=== PATIENT | male | born 1960 | race Caucasian/White ===

== ENCOUNTER → 2019-07-06 | Outpatient (CLI) | payer OTHER ==
[~2019-07-06] MED LIST: ASPI81TA59 PO; ATOR10TA PO; CLOP75TA57 PO; HYDR-2145 PO; MULT-245 PO
== END | disposition home or self-care (01) ==
LOC: LAB 13:40
PROVIDERS: ATTEND Registered Nurse
DX: Z03.818 Encounter for observation for suspected exposure to other biological agents ruled out (principal)
CPT/HCPCS: 87635

== ENCOUNTER → 2019-07-10 | Day surgery (SDC) | payer OTHER ==
[~2019-07-10] MED LIST changes: +IPRATRPIUM/ALBUTEROL 0.5/2.5MG 3 ML NEBU. NEB PRN; +IV RINGERS SOLUTION,LACTATED 1,000 ML IV SCH; +ONDANSETRON PF 4 MG/2 ML VIAL. IV PRN; +PROPOFOL 10,000 MCG/ML (20ML) VIAL IV ONE
[2019-07-10 08:38] VITALS: BP 133/78
--- NOTE | 2019-07-11 17:06 | PATHOLOGY ---
[facility] Accession Number: [id number] . 01 Material submitted: . PART A: colon - SIGMOID POLYP. Modifiers: sigmoid PART B: colon - TRANSVERSE POLYP. Modifiers: transverse . 01 Clinical history: . None provided . 02 Diagnosis: A. Colon biopsies, sigmoid colon: - Tubular adenoma. . B. Colon biopsies, transverse colon polyp: - Tubular adenoma. (JPM:contreras; 07/11/2019) [facility] [place] 1420 Local . 02 Comment: There is no high-grade dysplasia or evidence of malignancy. (JPM:contreras; 07/11/2019) . 02 Electronically signed: . Te Rutledge MD, Pathologist NPI- [id number] . 01 Gross description: . A. The specimen is received in formalin, labeled "Ko Kosman, sigmoid polyp". Received is a segment of pale ruiz soft tissue measuring 0.4 cm in maximum dimensions. The specimen is submitted entirely in cassette A1. . B. The specimen is received in formalin, labeled "Ko Kosman, transverse polyp". Received are two segments of pale ruiz soft tissue ranging in size from 0.4 to 0.5 cm in maximum dimensions. The specimen is submitted entirely in cassette B1. (CAA; 07/10/2019) QAC/QAC 07/10/2019 1704 Local . 02 Pathologist provided ICD-10: D12.5, D12.3 . 02 CPT . 549696, [id number] Specimen Comment: A courtesy copy of this report has been sent to [phone] Specimen Comment: [id number] Specimen Comment: Report sent to / DR GOA Performed at: [address] [place] [address] [address], [place], [place] [id number] MD Ko Posada MD Phone: [phone] Performed at: [address] [id number] MD Te Rutledge MD Phone: [phone]
== END ==
LOC: SURG 06:02
PROVIDERS: ATTEND Emergency Medicine
DX: Z12.11 Encounter for screening for malignant neoplasm of colon (principal); D12.3 Benign neoplasm of transverse colon; D12.5 Benign neoplasm of sigmoid colon; K57.30 Diverticulosis of large intestine without perforation or abscess without bleeding; I10 Essential (primary) hypertension; E78.00 Pure hypercholesterolemia, unspecified; G57.30 Lesion of lateral popliteal nerve, unspecified lower limb; E66.9 Obesity, unspecified; Z68.37 Body mass index [BMI] 37.0-37.9, adult; F17.210 Nicotine dependence, cigarettes, uncomplicated; Z86.73 Personal history of transient ischemic attack (TIA), and cerebral infarction without residual deficits; Z87.442 Personal history of urinary calculi; Z72.89 Other problems related to lifestyle
CPT/HCPCS: 45380; J2704; J7120; 88305

== ENCOUNTER → 2021-06-16 | Outpatient (CLI) | payer OTHER ==
[2019-07-10 08:38] VITALS: BP 133/78
[~2021-06-16] MED LIST changes: +IOHEXOL 300 MG/ML 75 ML VIAL. IV ONE; -IPRATRPIUM/ALBUTEROL 0.5/2.5MG 3 ML NEBU. NEB PRN; -IV RINGERS SOLUTION,LACTATED 1,000 ML IV SCH; -ONDANSETRON PF 4 MG/2 ML VIAL. IV PRN; -PROPOFOL 10,000 MCG/ML (20ML) VIAL IV ONE
--- NOTE | 2021-06-16 11:42 | RAD ---
CT abdomen and pelvis with contrast PQRS statement: CT scans at this facility use dose reduction including either automated exposure cont rol, iterative reconstructions, and /or weight based radiation dosing via mA and kV modification when appropriate to reduce radiation dose to as low as reasonably achievable. Contrast: 100 mL Omnipaque 200 intravenous contrast. HISTORY: Prostate cancer. Malignant neoplasm of the prostate. COMPARISON: No priors FINDINGS: Amplatzer device atrial septum the heart extends outside of the field of view. Lung bases u nremarkable. Lower lumbar disc disease and facet arthritis with spinal canal and neural foraminal ney noses and grade 1 anterolisthesis of L4 on L5. 1.2 cm cyst right hepatic lobe density 4 units. Tiny c alcifications pancreas uncinate perhaps the sequela of chronic pancreatitis. Spleen, adrenal glands, gallbladder are unremarkable. Bilateral nephrolithiasis. Mild bilateral perinephric edema. Left renal posterior interpolar cortex demonstrates a indistinct 1.6 cm hyperdense or enhancing lesion with an internal density of 40 units this is indeterminate. Calcified aorta and abdominal arteries and iliac arteries. The appendix is normal. No obstruction or inflammation GI tract. Sigmoid colonic diverticul osis. No abdominal fluid or enlarged adenopathy. Pelvis findings: There is a fatty left inguinal hernia measuring approximately 6 x 4 cm with a smalle r 2 x 2 centimeter right inguinal fatty hernia noted. There is mild groundglass density along the babak p pelvic fat left pelvic sidewall without a discrete source of inflammation evident. Bladder, prostat e, rectum and bones are unremarkable. No pelvic fluid or adenopathy. IMPRESSION: 1. No evidence of abdominal or pelvic metastatic disease. 2. There is mild groundglass density of the deep pelvic fat along the left upper pelvic sidewall with out a clear etiology. This could be related to radiation treatment changes of the pelvis given histor y of prostate cancer. Secondary this could be localized fat edema from a prior inflammatory process. 3. Fatty bilateral inguinal hernias. 4. Nephrolithiasis. 5. Indeterminate 1.6 cm lesion of the left kidney with an internal density of 40 units, this could be a hyperdense hemorrhagic cyst or a solid enhancing neoplastic mass. This could be further assessed w ith sonography or MR imaging. Electronically signed by: Jeffrey Whitehead MD (06/16/2021 11:40 AM) [facility]
--- NOTE | 2021-06-17 08:18 | RAD ---
EXAM: BONE SCINTIGRAPHY. HISTORY: Prostate. TECHNIQUE: Following the intravenous injection of 24.4 mCi of Tc-99m labeled methylene diphosphonate (MDP), delayed images of the whole body were performed in anterior and posterior projections. COMPARISON: 06/16/2021. FINDINGS: There are no foci of intense uptake suggestive of osseous metastatic disease. Uptake at the left greater than right knees and midfeet is degenerative. Additional degenerative upta ke is noted at the acromioclavicular joints and the mid thoracic spine. IMPRESSION: 1. No scintigraphic evidence of osseous metastatic disease. Electronically signed by: Jaime Castañeda MD (06/17/2021 8:16 AM) [id number]
== END ==
LOC: NM 09:11
PROVIDERS: ATTEND Urology
DX: C61 Malignant neoplasm of prostate (principal); K57.30 Diverticulosis of large intestine without perforation or abscess without bleeding; N20.0 Calculus of kidney; K40.20 Bilateral inguinal hernia, without obstruction or gangrene, not specified as recurrent; I70.0 Atherosclerosis of aorta; M43.16 Spondylolisthesis, lumbar region; M48.061 Spinal stenosis, lumbar region without neurogenic claudication; M47.816 Spondylosis without myelopathy or radiculopathy, lumbar region
CPT/HCPCS: 74177; 78306; A9503; Q9967